=== PATIENT | male | born 1955 | race Caucasian/White ===

== ENCOUNTER 2017-04-12 16:46 | Observation (INO) ==
[2017-04-12 17:04] VITALS: BMI 27.8
[2017-04-12] MEDS ORDERED: MORPHINE SULFATE 2 MG SYRINGE IVP PRN (18:13)
[2017-04-12] MEDS ORDERED: ACETAMINOPHEN 325 MG TABLET PO PRN (18:13)
[2017-04-12] MEDS ORDERED: IBUPROFEN 600 MG TABLET PO PRN (18:13)
[2017-04-12] MEDS ORDERED: ENOXAPARIN 100 MG/ML INJECTION SQ SCH ×2 (18:45→21:00)
--- NOTE | 2017-04-12 18:50 | History & Physical Report ---
<Megan Ugarte - Last Filed: 04/12/17 19:37> History of Present Illness Date: 04/12/17 Chief complaint: pulmonary emboli HPI: Patient is a pleasant 61-year-old white male who is a direct admit from his PCP , Dr. Lee in due to new diagnosis of pulmonary emboli. Patient states he first noted symptoms the night of April 08. States he had what he considered to be "bad heartburn." He had some shortness of breath associated with the burning in his throat/chest so he got up and drank water and took Tums and his symptoms resolved. The following night he noticed that he had some cramps in the right side of his back and it hurt to take a deep breath. He took Advil that evening and symptoms resolved. His symptoms gradually worsened until last night his symptoms were 10/10. He was short of breath, especially with deep breathing, and his pain is severe. This prompted him to see his PCP today. His chest x-ray performed today showed small effusions with infiltrate in the right base. EKG showed nonspecific changes. He had an elevated d-dimer so CTA for PE was performed and was positive for multiple pulmonary emboli. Following the diagnosis, patient was admitted to observation under the care of the hospitalist team for anticoagulation and further monitoring. Patient has no significant risk factors for PE. He has had no pain in his legs. No family history or personal history of DVT or blood disorders. He does have a strong family history of cancer. See family history section. He did travel by plane to [place] the end of March. Other than that plane trip, he has not been sedentary for a prolonged period. He's had a 20 pound weight loss since August. This is explained by increased exercise since having his right knee replaced in August. He's also been watching his diet. He takes aspirin 325 daily. Overall he has been feeling very well and has had no recent illness. Review of Systems Comprehensive ROS: completed and no additional positive findings except those as stated - Respiratory Respiratory: Present: pain on inspiration - Musculoskeletal Musculoskeletal: Present: back pain (right-sided thoracic back pain with inspiration) PFSH Cardiomyopathy-Dr. Lobo resource manager forester Hypothyroidism Asthma -quiescent Essential hypertension-controlled GERD Hypercholesterolemia Osteoarthritis Surgical History: Total knee arthroplasty right-08/2016 (Dr. Berger). Arthroscopy of right knee-2001. Left varicocele surgery-1984 Family History: Father-( age 67) heart disease Mother-( age 50) asthma, heart disease Brother ( age 42) bone cancer (pipe smoker) Brother ( age 67) complications from kidney cancer Sister () asthma, severe rheumatoid arthritis - Social History Smoking status: Former smoker Packs-years: 11 (started smoking age 10. Quit age 21.) Substance use type: does not use Alcohol intake: current Alcohol intake frequency: a few times a month Housing: house Household members: spouse Current occupational status: employed (owns [employer]) Current residence: Apartment/Private Home Social history: PCP-Dr. Lee Manager Pet-Dr. Lobo Orthopedist-Dr. Berger Medications Home Medications Medication Instructions Recorded Confirmed Type Albuterol Sulfate [Proair Hfa] 2 puff INH Q6H PRN #0 inhaler 08/16/16 04/12/17 History Atorvastatin Calcium 1 tab PO HS #0 tab 08/16/16 04/12/17 History Glucosa Paz 2Kcl/Chondroitin Paz 1 cap PO DAILY #0 08/16/16 04/12/17 History [Glucosamine & Chondroitin Cap] Levothyroxine Sodium 75 mcg PO ACB #0 tab 08/16/16 04/12/17 History Multivitamin [Men's Multi-Vitamin] 1 tab PO DAILY #0 08/16/16 04/12/17 History Triamterene/Hydrochlorothiazid 0.5 tab PO DAILY #0 tab 08/16/16 04/12/17 History [Triamterene-Hctz 37.5-25 mg Tb] Aspirin [Aspirin EC] 325 mg PO DAILY 04/12/17 04/12/17 History Allergies Allergy/AdvReac Type Severity Reaction Status Date / Time lisinopril AdvReac Unknown JOINT AND Verified 08/21/16 07:51 MUSCLE PAIN Exam Vital Signs: Temperature 96.6 F L 04/12/17 17:02 Pulse Rate 78 04/12/17 17:02 Respiratory Rate 18 04/12/17 17:02 Blood Pressure 138/74 04/12/17 17:02 Pulse Oximetry 97 04/12/17 17:02 Oxygen Delivery Method Room Air Height: 1.83 m Weight: 93.1 kg Body Mass Index: 27.8 - Constitutional Present: no acute distress, well nourished, well developed - Routine HEENT Exam Head: Present: normocephalic, atraumatic Eye: Present: EOMI, PERRL ENT: Present: mucous membranes moist, oropharynx clear, dentition normal - Routine Neck Exam Present: supple, full ROM - Routine Chest/Breast/Axilla Exam Chest wall: Absent: tenderness, mass - Routine Respiratory Exam Present: CTA bilaterally. Absent: accessory muscle use, respiratory distress, wheezes - Routine Cardiovascular Exam Present: RRR, S1, S2. Absent: murmur, tachycardia Comments: Normal pedal pulses - Routine Abdominal Exam Present: soft, normoactive bowel sounds, non distended. Absent: tenderness - Routine Extremities Exam Present: no edema, normal capillary refill. Absent: calf tenderness Comments: Arthritic deformity to several DIP joints of the fingers - Routine Back/Spine/Pelvis Exam Back/Spine: Present: full ROM. Absent: CVA tenderness - Routine Skin Exam Present: dry, warm - Routine Neurological Exam Present: alert, oriented X3, CN II-XII intact - Routine Psychiatric Exam Present: normal affect, normal thought process Results - Labs Labs: Laboratory Tests 08/22/16 04/12/17 04/12/17 04:15 14:18 14:18 WBC 12.5 H RBC 4.24 L Hgb 12.2 L Hct 37.3 L MCV 88.0 MCH 28.8 MCHC 32.7 RDW Std Deviation 41.3 Plt Count 188 MPV 10.9 D-Dimer 1053 H Turbidity < 20 Sodium 142 Potassium 4.4 Chloride 101 Carbon Dioxide 28 Anion Gap 13 BUN 17.0 Creatinine 0.9 GFR Calculation 86 BUN/Creatinine Ratio 19 Glucose 88 Calculated Osmolality 274 Calcium 9.7 Total Bilirubin 1.40 H Icterus Index < 2 AST 28 ALT 39 Alkaline Phosphatase 98 Troponin I < 0.012 Total Protein 7.1 Albumin 4.2 Globulin 2.9 Albumin/Globulin Ratio 1.4 Specimen Hemolysis < 15 - Imaging and Cardiology Chest x-ray Additional comments: Chest x-ray-small right-sided pleural effusion with infiltrate right base EKG-showed LAD and nonspecific T changes per Dr. Lee' report CT scan - chest Additional comments: CTA-chest Impression: Bilateral pulmonary arterial emboli, most prominent within segmental and subsegmental branches within the right lower lobe which demonstrates areas of heterogeneous airspace opacification suggestive of developing pulmonary infarctions with a small reactive right pleural effusion, with additional emboli seen within right upper and left lower lobe branches. Assessment and Plan DVT Prophylaxis: SCD's, Lovenox GI Prophylaxis: Protonix Resuscitation Status: Full Code Assessment and Plan: Assessment: Cardiomyopathy-Dr. Lobo resource manager forester Hypothyroidism Asthma -quiescent Essential hypertension-controlled GERD Hypercholesterolemia Osteoarthritis Plan: Admit patient to observation under the care of the hospitalist team, attending Dr. Anthony for anticoagulation and continued monitoring. Patient was given Lovenox on admission. Prefers Dr. Lobo to choose anticoagulation agent. Dr. Anthony will discuss this with Dr. Lobo and put in the order. Will hold daily aspirin. Lovenox and SCDs for VTE prophylaxis. Protonix for GI prophylaxis, especially with recent symptoms of GERD. Spot oximetry with oxygen to keep sats greater than 90%. Should patient have any wheezing or shortness of air, will order nebulizer treatments. Continue home meds for other chronic health problems. Patient is a full code. This is noted in the chart. Upon discharge, patient's care will return to his PCP, Dr. Lee - Time spent with patient greater than 35 minutes Sepsis Assessment - Evaluation Sepsis screening result: No Definite Risk Hospital Course Summary Disclaimer: The visit summary below is not to be considered part of the above Progress Note. Hospital Course: 04/12/17 admit for observation Assessment: Pulmonary emboli Cardiomyopathy-Dr. Lobo resource manager forester Hypothyroidism Asthma -quiescent Essential hypertension-controlled GERD Hypercholesterolemia Osteoarthritis Plan: Admit patient to observation under the care of the hospitalist team, attending Dr. Anthony for anticoagulation and continued monitoring. Patient was given Lovenox on admission. Prefers Dr. Lobo to choose anticoagulation agent. Dr. Anthony will discuss this with Dr. Lobo and put in the order. Will hold daily aspirin. Lovenox and SCDs for VTE prophylaxis. Protonix for GI prophylaxis, especially with recent symptoms of GERD. Spot oximetry with oxygen to keep sats greater than 90%. Should patient have any wheezing or shortness of air, will order nebulizer treatments. Continue home meds for other chronic health problems. Patient is a full code. This is noted in the chart. Upon discharge, patient's care will return to his PCP, Dr. Lee <Isabela Anthony - Last Filed: 04/12/17 22:33> History of Present Illness Date: 04/12/17 [facility] Patient Stated Medical History Migraine Yes Other Cardiology Yes: palpitations Pulmonary Embolism Yes: current diagnosis Osteoarthritis Yes Exam Vital Signs: Temperature 96.6 F L 04/12/17 17:02 Pulse Rate 78 04/12/17 17:02 Respiratory Rate 18 04/12/17 17:02 Blood Pressure 138/74 04/12/17 17:02 Pulse Oximetry 97 04/12/17 17:02 Oxygen Delivery Method Room Air Height: 1.83 m Weight: 93.1 kg Assessment and Plan (1) Pulmonary emboli Problem details: Probable right-sided pulmonary infarct Current visit: Yes Status: Acute Assessment and Plan: I have independently evaluated and examined this patient. I reviewed the chart, the patient's history, and the DOCTOR OF NAPRAPATHIC MEDICINE/PA's documented findings as above. We discussed and formulated the assessment and plan as above with additions as below: Mr. Giang a 61-year-old male without prior history of VTE who presents with 3-4 day history of right pleuritic pain without hemoptysis or hypoxia. He has had associated indigestion. Symptoms preceded by recent air travel but no trauma and there is no known family history of VTE. No preceding symptoms to suggest DVT by history. NAD, alert, respirations nonlabored Airflow good, breath sounds clear Cardiac rhythm regular, S1-S2, neck veins not distended No lower extremity edema, calves soft/nontender. D-dimer elevated 1053, comprehensive metabolic panel unremarkable other than bilirubin 1.4; creatinine 0.9. CTA reviewed by myself-localized infiltrate in the right lower lobe consistent with pulmonary infarction; multiple pulmonary emboli primarily in the right lower lobe although additional emboli reported in the left lower lobe and right upper lobe per radiology; no evidence of pulmonary hypertension or RV strain. Treatment options reviewed with Mr. Giang in detail and subsequently case discussed briefly with Dr. Lobo. Lovenox initiated this evening. Plan treatment with NOAC longer-term, will clarify which agent is compatible with the patient's insurance in the morning. I'm additionally concerned about the increase in reflux symptoms and will obtain upper GI tomorrow morning to exclude restrictive lesion at the GE junction that would suggest need for direct visualization. Even absence of hypoxia or evidence of right heart strain on CT can pursue echocardiogram as an outpatient. Will continue aspirin but at does 81 mg daily. Discussed with Dr. Lee in addition to Dr. Lobo. Hospital Course Summary Disclaimer: The visit summary below is not to be considered part of the above Progress Note.
[2017-04-12] MEDS ORDERED: ALBUTEROL 2.5mg/3ml (0.083%) NEB AEROSOL PRN (19:13)
[2017-04-12] MEDS: ENOXAPARIN 100 MG/ML INJECTION SQ SCH (20:51)
[2017-04-12] MEDS: HYDROCODONE/APAP 5mg/325mg TABLET PO PRN (20:59)
[2017-04-12] MEDS: PANTOPRAZOLE 20 MG TABLET PO SCH (21:05)
[2017-04-12] MEDS ORDERED: ATORVASTATIN 10 MG TABLET PO SCH (22:00)
[2017-04-12] MEDS: ASPIRIN *EC* 81 MG TABLET PO SCH (22:43)
[2017-04-13] MEDS: HYDROCODONE/APAP 5mg/325mg TABLET PO PRN (03:00)
[2017-04-13] MEDS: PANTOPRAZOLE 20 MG TABLET PO SCH (06:07)
[2017-04-13] MEDS: ENOXAPARIN 100 MG/ML INJECTION SQ SCH (06:08)
[2017-04-13] MEDS ORDERED: LEVOTHYROXINE 75 MCG TABLET PO SCH (06:30)
[2017-04-13 07:37] VITALS: BP 116/81; PULSE 67; RESP 18; TEMP 97.5; O2SAT 92
[2017-04-13] MEDS: ASPIRIN *EC* 81 MG TABLET PO SCH (08:03)
[2017-04-13] MEDS ORDERED: MULTI-VITAMIN + MINERAL TABLET PO SCH (09:00)
[2017-04-13] MEDS ORDERED: TRIAMTERENE/HCTZ 37.5 MG-25 MG TABLET PO SCH (09:00)
--- NOTE | 2017-04-13 11:39 | Discharge Summary ---
<Ashley Jimenez Ricardo - Last Filed: 04/13/17 11:33> Discharge Information Date of admission: 04/12/17 16:51 Anticipated date of discharge: 04/13/17 Attending Physician: Isabela Anthony MD Primary care physician: Amrit Lee MD Consults: Phone Consultation- Dr. Doc Lobo - Discharge Diagnosis Discharge Diagnosis: Bilateral PE Cardiomyopathy-Dr. Lobo lap layer Hypothyroidism Asthma -quiescent Essential hypertension-controlled GERD Hypercholesterolemia Osteoarthritis - Procedures Procedures: none - Laboratory Labs: 04/13/17 04:43 04/13/17 04:43 - Radiology Radiology: CTA-chest Impression: Bilateral pulmonary arterial emboli, most prominent within segmental and subsegmental branches within the right lower lobe which demonstrates areas of heterogeneous airspace opacification suggestive of developing pulmonary infarctions with a small reactive right pleural effusion, with additional emboli seen within right upper and left lower lobe branches. History of Present Illness HPI: Patient is a pleasant 61-year-old white male who is a direct admit from his PCP , Dr. Lee in due to new diagnosis of pulmonary emboli. Patient states he first noted symptoms the night of April 08. States he had what he considered to be "bad heartburn." He had some shortness of breath associated with the burning in his throat/chest so he got up and drank water and took Tums and his symptoms resolved. The following night he noticed that he had some cramps in the right side of his back and it hurt to take a deep breath. He took Advil that evening and symptoms resolved. His symptoms gradually worsened until last night his symptoms were 10/10. He was short of breath, especially with deep breathing, and his pain is severe. This prompted him to see his PCP today. His chest x-ray performed today showed small effusions with infiltrate in the right base. EKG showed nonspecific changes. He had an elevated d-dimer so CTA for PE was performed and was positive for multiple pulmonary emboli. Following the diagnosis, patient was admitted to observation under the care of the hospitalist team for anticoagulation and further monitoring. Patient has no significant risk factors for PE. He has had no pain in his legs. No family history or personal history of DVT or blood disorders. He does have a strong family history of cancer. See family history section. He did travel by plane to [place] the end of March. Other than that plane trip, he has not been sedentary for a prolonged period. He's had a 20 pound weight loss since August. This is explained by increased exercise since having his right knee replaced in August. He's also been watching his diet. He takes aspirin 325 daily. Overall he has been feeling very well and has had no recent illness. Objective Vital signs: Temperature 97.5 F 04/13/17 07:37 Pulse Rate 67 04/13/17 07:37 Respiratory Rate 18 04/13/17 07:37 Blood Pressure 116/81 04/13/17 07:37 Pulse Oximetry 92 04/13/17 07:37 Oxygen Delivery Method Room Air Weight: 92.1 kg - Constitutional Present: no acute distress, well nourished, well developed, cooperative - Routine HEENT Exam Head: Present: normocephalic, atraumatic Eye: Present: EOMI, PERRL ENT: Present: mucous membranes moist - Routine Respiratory Exam Present: CTA bilaterally. Absent: dyspnea, decreased breath sounds, rales, respiratory distress, rhonchi Comments: Good airflow. No SOA. - Routine Cardiovascular Exam Present: RRR, S1, S2, no murmur - Routine Abdominal Exam Present: soft, normoactive bowel sounds, non distended, non tender - Routine Extremities Exam Present: no edema, non tender - Routine Musculoskeletal Exam Musculoskeletal: Present: no clubbing or cyanosis, normal strength, no joint swelling, moving extremities well - Routine Skin Exam Present: intact, dry, warm - Routine Neurological Exam Present: alert, oriented X3, moving all extremities - Routine Psychiatric Exam Present: normal affect, normal thought process, good insight, good judgment Hospital Course This is a general summary of the patient's hospital course. For more details refer to the complete medical record. 04/13/17 Patient is feeling quite a bit better today. Denies any chest pain, cough, palpitations or SOA. He has been "walking all over the hospital" without any difficulties. We reviewed current findings at length. Reviewed treatment options, including Warfarin vs. NOACs- Pradaxa, Xarelto, Eliquis each reviewed. Risks/benefits/safety profiles/reversal agents discussed for each option. He is in agreement with Danae. Dr. Lobo confirmed plan for NOAC therapy on DC. Prior-auth sent to [facility], Co-Pay assist card obtained for patient to be used if needed. He does have cardiomyopathy with global dilitation despite preserved EF. No prior hx of DVT/PE. No current or past hx of GI ulcers, bleeding, etc. Discussed tx recommendation of 3-6 months given first thrombotic event. Dr. Anthony did d/w radiology- unable to obtain gastric studies discussed in H& P this weekend. He will need to follow up with PCP for further testing as indicated. Overall, pt is doing very well. Maintaining O2 sats > 90% with activity and is asx at the time of dismissal. He is in agreement for DC. Hospital course: 04/12/17 admit for observation Assessment: Pulmonary emboli Cardiomyopathy-Dr. Lobo lap layer Hypothyroidism Asthma -quiescent Essential hypertension-controlled GERD Hypercholesterolemia Osteoarthritis Plan: Admit patient to observation under the care of the hospitalist team, attending Dr. Anthony for anticoagulation and continued monitoring. Patient was given Lovenox on admission. Prefers Dr. Lobo to choose anticoagulation agent. Dr. Anthony will discuss this with Dr. Lobo and put in the order. Will hold daily aspirin. Lovenox and SCDs for VTE prophylaxis. Protonix for GI prophylaxis, especially with recent symptoms of GERD. Spot oximetry with oxygen to keep sats greater than 90%. Should patient have any wheezing or shortness of air, will order nebulizer treatments. Continue home meds for other chronic health problems. Patient is a full code. This is noted in the chart. Upon discharge, patient's care will return to his PCP, Dr. Lee 04/13/17- Doing well. Home with NOAC. Time spent with patient: discharge greater than 30 minutes DVT Prophylaxis: Xarelto Discharge Plan - Med Rec/Dispo Referrals/Follow Up: Amrit Lee MD [Family Provider] - 1 Week Kaleb Instructions: Rivaroxaban (By mouth), Pulmonary Embolism (DC) Prescriptions: New Acetaminophen [Tylenol] 325 - 650 mg PO Q5H PRN tablet PRN Reason: Discomfort Aspirin *EC* [Ecotrin] 81 mg PO DAILY tablet Hydrocodone/APAP 5/325 [[place] 5/325] 1 tab PO Q6H PRN #20 tablet PRN Reason: Pain Rivaroxaban [Xarelto] 1 each PO 1-2XD 30 Days #1 tab.ds.pk NS MDD 30 Rivaroxaban [Xarelto] 20 mg PO WS #30 tab Pantoprazole Sodium [Protonix] 20 mg PO ACB tablet.dr Continue Atorvastatin Calcium 1 tab PO HS #0 tab Levothyroxine Sodium 75 mcg PO ACB #0 tab Triamterene/Hydrochlorothiazid [Triamterene-Hctz 37.5-25 mg Tb] 0.5 tab PO DAILY #0 tab Albuterol Sulfate [Proair Hfa] 2 puff INH Q6H PRN #1 inhaler PRN Reason: SHORTNESS OF AIR/WHEEZING Glucosa Paz 2Kcl/Chondroitin Paz [Glucosamine & Chondroitin Cap] 1 cap PO DAILY #0 Multivitamin [Men's Multi-Vitamin] 1 tab PO DAILY #0 Discontinued Aspirin [Aspirin EC] 325 mg PO DAILY - Disposition 01 Discharged Home, Self-Care <Isabela Anthony - Last Filed: 04/13/17 14:30> Discharge Information Date of admission: 04/12/17 16:51 Attending Physician: Isabela Anthony MD Primary care physician: Amrit Lee MD Consults: 04/12/17 22:17 Case Management Consult [CONS] Routine Reason For Exam: home anticoagulation-call me to discuss - Laboratory Labs: 04/13/17 04:43 04/13/17 04:43 Objective Vital signs: Temperature 97.5 F 04/13/17 07:37 Pulse Rate 67 04/13/17 07:37 Respiratory Rate 18 04/13/17 07:37 Blood Pressure 116/81 04/13/17 07:37 Pulse Oximetry 92 04/13/17 07:37 Oxygen Delivery Method Room Air Hospital Course This is a general summary of the patient's hospital course. For more details refer to the complete medical record. Hospital course: I have independently evaluated and examined this patient. I reviewed the chart, the patient's history, and the DIE CUTTER/PA's documented findings as above. We discussed and formulated the assessment and plan as above with additions as below: Mr. Giang reported feeling well today. He denied dyspnea or recurrent heartburn. He's had no lightheadedness or hemoptysis. Patient is alert and cooperative. Respirations are nonlabored with good airflow and clear breath sounds. Upper GI/esophagram could not be obtained today and will defer to outpatient testing although patient reports he really only had one episode of heartburn. Will convert from Lovenox to Xarelto for management of PE. Treatment reviewed with the patient. To follow up with Dr. Lee in approximately one week. Addendum entered and electronically signed by Ashley Jimenez APRN 04/13/17 12:14 : OBS DC> 30 min
== END 2017-04-13 12:50 | disposition home or self-care (01) ==
LOC: MED
PROVIDERS: ADMIT Internal Medicine; ATTEND Internal Medicine